=== PATIENT | male | born 1995 | race Caucasian/White ===

== ENCOUNTER 2016-05-07 03:33 | Emergency (ER) | payer SELFPAY | END 2016-05-07 05:10 | disposition home or self-care (01) | LOC: D.ER 03:33 | DX: S30.811A Abrasion of abdominal wall, initial encounter (principal); S20.319A Abrasion of unspecified front wall of thorax, initial encounter; X99.1XXA Assault by knife, initial encounter; Y93.89 Activity, other specified; Y92.89 Other specified places as the place of occurrence of the external cause; S61.411A Laceration without foreign body of right hand, initial encounter; S01.111A Laceration without foreign body of right eyelid and periocular area, initial encounter; S00.83XA Contusion of other part of head, initial encounter; S31.159A Open bite of abdominal wall, unspecified quadrant without penetration into peritoneal cavity, initial encounter; W54.0XXA Bitten by dog, initial encounter; F31.9 Bipolar disorder, unspecified; F41.9 Anxiety disorder, unspecified; F17.200 Nicotine dependence, unspecified, uncomplicated ==

== ENCOUNTER 2016-08-20 07:51 | Emergency (ER) | payer SELFPAY | END 2016-08-20 08:40 | disposition home or self-care (01) | LOC: D.ER 07:51 | DX: S01.111A Laceration without foreign body of right eyelid and periocular area, initial encounter (principal); Y04.2XXA Assault by strike against or bumped into by another person, initial encounter; Y93.89 Activity, other specified; Y92.89 Other specified places as the place of occurrence of the external cause; F31.89 Other bipolar disorder; F17.200 Nicotine dependence, unspecified, uncomplicated ==

== ENCOUNTER 2017-01-17 19:56 | Emergency (ER) | payer MEDICAID ==
[2017-01-17 21:13] LABS: BASOPHILS 0.3 % (0-2); EOSINOPHILS 1.4 % (0-7); HEMATOCRIT 44.7 % (42.0-54.0); HEMOGLOBIN 14.7 g/dL (13.5-17.5); IMMATURE GRANULOCYTES 0.2 % (0-5); LYMPHOCYTES 32.2 % (15-50); MCH 28.4 pg (26.0-34.0); MCHC 32.9 g/dL (31.0-37.0); MCV 86.3 fL (80.0-100.0); MEAN PLATELET VOLUME 9.9 fL (7.4-10.4); NEUTROPHILS 55.9 % (40-80); PLATELET COUNT 276 10x3/uL (130-400); RBC 5.18 10x6/uL (4.20-6.10); RDW 14.4 % (11.5-14.5); WBC 8.6 10x3/uL (4.8-10.8)
[2017-01-17 21:33] LABS: ALBUMIN 3.7 g/dL (3.4-5.0); ALKALINE PHOSPHATASE 66 U/L (46-116); ALT (SGPT) 25 U/L (10-68); BILIRUBIN - TOTAL 0.12 mg/dL (0.2-1.3); CALC OSMOLALITY 281 mosm/kg (275-300); CALCIUM 9.3 mg/dL (8.5-10.1); CARBON DIOXIDE 27.7 mmol/L (21.0-32.0); CHLORIDE - SERUM 102 mmol/L (98-107); CREATININE - SERUM 0.8 mg/dL (0.6-1.3); GLUCOSE 92 mg/dL (74-106); PROTEIN - SERUM 6.7 g/dL (6.4-8.2); SODIUM 142 mmol/L (136-145); UREA NITROGEN 9 mg/dL (7-18); eGFR NON AFRICAN AMERICAN > 90 mL/min (90-120)
== END 2017-01-17 22:15 | disposition home or self-care (01) ==
LOC: D.ER 19:56
PROVIDERS: Emergency Medicine
DX: F17.200 Nicotine dependence, unspecified, uncomplicated (principal)

== ENCOUNTER 2017-02-26 17:58 | Emergency (ER) | payer OTHER | END 2017-02-26 19:58 | disposition home or self-care (01) | LOC: D.ER 17:58 | DX: J01.90 Acute sinusitis, unspecified (principal); K08.89 Other specified disorders of teeth and supporting structures; K02.9 Dental caries, unspecified; F17.200 Nicotine dependence, unspecified, uncomplicated ==

== ENCOUNTER 2018-09-23 23:34 | Emergency (ER) | payer SELFPAY ==
[~2018-09-23] VITALS: Ht 185.4 cm; Wt 113.6 kg
[2018-09-23 23:46] VITALS: Ht 185.4 cm; Wt 113.6 kg
[2018-09-24] MEDS ORDERED: SCOT-TUSSI10 MG/5 ML PO (01:16)
[2018-09-24] MEDS ORDERED: ZPAK PO (01:16)
[2018-09-24] MEDS ORDERED: ALBUTEROL SULF8.5 GM INH (01:16)
[2018-09-24 02:00] VITALS: BP 132/79
== END 2018-09-24 02:01 | disposition home or self-care (01) ==
LOC: D.ER 23:34
DX: J06.9 Acute upper respiratory infection, unspecified (principal)

== ENCOUNTER 2018-10-30 16:27 | Emergency (ER) | payer SELFPAY ==
[~2018-10-30] VITALS: Ht 185.4 cm; Wt 113.6 kg
[~2018-10-30 16:27] MED LIST: ALBUTEROL SULF8.5 GM INH; SCOT-TUSSI10 MG/5 ML PO; ZPAK PO
[2018-10-30 16:58] VITALS: Ht 185.4 cm; Wt 113.6 kg
[2018-10-30] MEDS ORDERED: MUPIROCIN22 GM TOPICAL (19:26)
[2018-10-30 19:55] VITALS: BP 135/74
== END 2018-10-30 19:55 | disposition home or self-care (01) ==
LOC: D.ER 16:27
DX: S40.862A Insect bite (nonvenomous) of left upper arm, initial encounter (principal); W57.XXXA Bitten or stung by nonvenomous insect and other nonvenomous arthropods, initial encounter; Y93.89 Activity, other specified; Y92.89 Other specified places as the place of occurrence of the external cause